=== PATIENT | female | born 1960 | race Caucasian/White ===

== ENCOUNTER → 2017-05-31 | Outpatient (CLI) | payer OTHER ==
[~2017-05-31] MED LIST: IOPAMIDOL (ISOVUE-300) 100 ML BTL ONE
== END ==
LOC: FIMAGING 16:09
PROVIDERS: ATTEND Internal Medicine
DX: R31.29 Other microscopic hematuria (principal); N28.1 Cyst of kidney, acquired
CPT/HCPCS: Q9967

== ENCOUNTER → 2017-06-13 | Outpatient (CLI) | payer OTHER ==
[~2017-06-13] MED LIST changes: +GADOBUTROL 10 ML VIAL IVP ONE; -IOPAMIDOL (ISOVUE-300) 100 ML BTL ONE
== END ==
LOC: FIMAGING 19:27
PROVIDERS: ATTEND Internal Medicine
DX: Q45.3 Other congenital malformations of pancreas and pancreatic duct (principal)
CPT/HCPCS: A9585

== ENCOUNTER → 2017-07-11 | Outpatient (CLI) | payer OTHER | LOC: BRMIMAGING 15:11 | PROVIDERS: ATTEND Internal Medicine | DX: Z12.31 Encounter for screening mammogram for malignant neoplasm of breast (principal); Z80.3 Family history of malignant neoplasm of breast | CPT/HCPCS: G0202 ==